=== PATIENT | female | born 2000 | race American Indian/Alaskan Native ===

== ENCOUNTER 2019-03-04 01:29 | Emergency (ER) | payer MEDICAID ==
[2019-03-04 01:37] VITALS: BP 107/69
[2019-03-04 03:01] LABS: Basophils % (Auto) 0.2 % (0.0-1.8); Eosinophils # (Auto) 0.1 K/mm3 (0.0-0.4); Eosinophils % (Auto) 0.9 % (0.0-4.3); Hematocrit 33.2 % (30.3-42.9); Hemoglobin 11.9 gm/dl (10.1-14.3); Lymphocytes # (Auto) 1.9 K/mm3 (1.2-5.4); Lymphocytes % (Auto) 22.6 % (13.4-35.0); Mean Corpuscular HGB Conc 36 % (30-34); Mean Corpuscular Volume 93 fl (79-97); Monocytes # (Auto) 0.7 K/mm3 (0.0-0.8); Monocytes % (Auto) 8.3 % (0.0-7.3); Platelet Count 313 K/mm3 (140-440); Red Blood Count 3.56 M/mm3 (3.65-5.03); Red Cell Distribution Width 13.2 % (13.2-15.2)
[2019-03-04] MEDS ORDERED: ONDANSETRON 4 MG ODT TAB PO ONE (03:05)
[2019-03-04] MEDS ORDERED: ONDANSETRON 4 MG ODT TAB ONE (03:05)
[2019-03-04] MEDS ORDERED: SODIUM CHLORIDE 0.9% 1000 ML 1,000 ML IV ONE (03:16)
[2019-03-04] MEDS ORDERED: ACETAMINOPHEN 500 MG TAB PO ONE (03:16)
[2019-03-04 03:18] LABS: Bacteria,Urine 1+ /HPF (Negative); Bilirubin,Urine NEG (Negative); Blood,Urine NEG (Negative); Color,Urine Yellow (Yellow); Mucus,Urine 3+ /HPF; Protein,Urine <15 mg/dL mg/dL (Negative)
--- NOTE | 2019-03-04 03:21 | Emergency Department Report ---
ED Female HPI - General Chief complaint: Abdominal Pain Stated complaint: 9WEEKS PREG, ABOMINAL PAIN Time Seen by Provider: 03/04/19 02:56 Source: patient, EMS Mode of arrival: Ambulatory Limitations: No Limitations - History of Present Illness Initial comments: 18-year-old female is currently about 9 weeks presents to the ER today complaining of low abdominal pain and abnormal vaginal bleeding. Patient states that yesterday she started with diffuse lower abdominal pain, which describes as sharp in nature and radiates into lower back. She reports spotting yesterday, but only noticed this once, she has not had any further bleeding or spotting since she has arrived to the ER. He states that yesterday while at work, she started feel generally weak, faint, started shaking all over and at the time feel short of breath, and so decided to go home. She states that she did vomit once around 11 PM yesterday, she states that the emesis contained stain small amount of bright red blood mixed with nachos. She states that the generalized weakness, shortness of breath and feeling faint has since resolved. She has continued to feel nauseous and she was gagging in the room, but no obvious vomiting. This is her first . 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 Denies any abnormal vaginal discharge or UTI symptoms, fever or chills or any other symptoms at this time. Complaint: vaginal bleeding, other (lower abdominal pain) -: Gradual (yesterday) - Related Data Previous Rx's Medication Instructions Recorded Last Taken Type Ondansetron [Zofran Odt] 4 mg PO Q8HR PRN #12 tab.rapdis 03/04/19 Unknown Rx Allergies Allergy/AdvReac Type Severity Reaction Status Date / Time amoxicillin Allergy Unknown Verified 03/04/19 01:34 ED Review of Systems ROS: Stated complaint: 9WEEKS PREG, ABOMINAL PAIN Other details as noted in HPI Comment: All other systems reviewed and negative Constitutional: denies: chills, fever Respiratory: denies: cough, orthopnea, shortness of breath (resolved), SOB with exertion, SOB at rest, wheezing Cardiovascular: denies: chest pain (earlier today but has since resolved) Gastrointestinal: abdominal pain, nausea, vomiting Genitourinary: other (vaginal spotting). denies: urgency, dysuria, frequency, hematuria, discharge, dyspareunia Musculoskeletal: back pain Neurological: denies: weakness (resolved), numbness, paresthesias, confusion, abnormal gait ED Past Medical Hx - Past Medical History Previous Medical History?: Yes Hx Asthma: Yes - Surgical History Past Surgical History?: No - Social History Smoking Status: Never Smoker Substance Use Type: None - Medications Home Medications: Home Medications Medication Instructions Recorded Confirmed Last Taken Type Ondansetron [Zofran Odt] 4 mg PO Q8HR PRN #12 tab.rapdis 03/04/19 Unknown Rx ED Physical Exam - General Limitations: No Limitations General appearance: alert, in no apparent distress - Head Head exam: Present: atraumatic, normocephalic, normal inspection - Eye Eye exam: Present: normal appearance, PERRL, EOMI Pupils: Present: normal accommodation - ENT ENT exam: Present: normal exam - Cardiovascular Cardiovascular Exam: Present: regular rate, normal rhythm, normal heart sounds - GI/Abdominal GI/Abdominal exam: Present: soft, tenderness (mild lower abdomen). Absent: distended, guarding, rebound - Neurological Exam Neurological exam: Present: alert, oriented X3, CN II-XII intact, normal gait - Psychiatric Psychiatric exam: Present: normal affect, normal mood - Skin Skin exam: Present: intact ED Course Vital Signs 03/04/19 03/04/19 01:33 03:24 Temperature 98.4 F Pulse Rate 81 Respiratory 18 18 Rate Blood Pressure 107/69 O2 Sat by Pulse 99 Oximetry ED Medical Decision Making - Lab Data Result diagrams: 03/04/19 02:35 03/04/19 02:35 - Radiology Data Radiology results: report reviewed Transvaginal OB ultrasound shows single viable intrauterine with a ultrasound gestational age of 8 weeks and 5 days. There is also a very small subchorionic hemorrhage adjacent to the inferior gestational sac. - Medical Decision Making Patient currently resting comfortably, and she is no acute distress. She is not toxic, ill appearing, normal mental status, neurologically intact. Vital signs are stable. No vomiting today. She has a Nonsurgical abdominal exam. Labs, and US reviewed. No further work up, admission or emergent consultation indicated at this time. Discussed results with patient and family member. patient has an up coming appointment with OBGYN soon and so recommend she keeps that appointment. Informed her that if anything worsens or changes return to ED. Critical care attestation.: If time is entered above; I have spent that time in minutes in the direct care of this critically ill patient, excluding procedure time. ED Disposition Clinical Impression: Threatened , Subchorionic hemorrhage Disposition: - TO HOME OR SELFCARE Is pt being admited?: No Does the pt Need Aspirin: No Condition: Stable Instructions: Threatened Miscarriage (ED) Additional Instructions: Recommend follow-up with [employer] in the next couple days as scheduled. Recommend Tylenol for pain. Take Zofran as needed for nausea and vomiting. Recommend that she try to stay hydrated as often as possible. Return to the ER if anything changes or worsens. Prescriptions: Ondansetron [Zofran Odt] 4 mg PO Q8HR PRN #12 tab.rapdis PRN Reason: Vomiting Referrals: PRIMARY CARE, [Primary Care Provider] - 3-5 Days Forms: Accompanied Note, Work/School Release Form(ED) Time of Disposition: 06:58
[2019-03-04 03:28] LABS: Alanine Aminotransferase 7 units/L (7-56); Albumin 3.9 g/dL (3.9-5); BUN/Creatinine Ratio 8; Blood Urea Nitrogen 3 mg/dL (7-17); Calcium 9.1 mg/dL (8.4-10.2); Hemolysis Index 4
--- NOTE | 2019-03-04 05:54 | Ultrasound Report ---
US OB transvaginal INDICATION / CLINICAL INFORMATION: 9 weeks vaginal bleeding. COMPARISON: None available. FINDINGS: Transvaginal imaging was performed. Intrauterine gestational sac is seen with yolk sac and pole. [place]-rump length is 21.3 mm (8 we eks, 5 days). heart rate is 176. There is a small subchorionic hemorrhage along the inferior as pect of the gestational sac. Ovaries are unremarkable. No free fluid. IMPRESSION: 1. Single viable intrauterine with sonographic gestational age of 8 weeks, 5 days. 2. Very small subchorionic hemorrhage adjacent to the inferior gestational sac. Signer Name: Javier Howell MD Signed: 03/04/2019 5:09 AM Workstation Name: [id number]
== END 2019-03-04 07:50 | disposition home or self-care (01) ==
LOC: ED 01:29
DX: O20.0 Threatened abortion (principal); O20.8 Other hemorrhage in early pregnancy; O21.8 Other vomiting complicating pregnancy; J45.909 Unspecified asthma, uncomplicated; Z79.899 Other long term (current) drug therapy; Z79.2 Long term (current) use of antibiotics; Z3A.09 9 weeks gestation of pregnancy
CPT/HCPCS: 36415; 76817; 80053; 81001; 83690; 84703; 85025; 86900; 86901; 96360; 99284; J7030; Q0162

== ENCOUNTER 2020-05-30 17:13 | Emergency (ER) | payer MEDICAID ==
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
[2020-05-30] MEDS ORDERED: ONDANSETRON 4 MG ODT TAB PO ONE ×2 (21:11→22:51)
[2020-05-30] MEDS ORDERED: IBUPROFEN 600 MG TAB PO ONE (21:11)
--- NOTE | 2020-05-30 21:51 | Cat Scan Report ---
CT HEAD WITHOUT CONTRAST INDICATION / CLINICAL INFORMATION: Trauma. TECHNIQUE: All CT scans at this location are performed using CT dose reduction for ALARA by means of automated e xposure control. COMPARISON: None available. FINDINGS: HEMORRHAGE: None. EXTRA-AXIAL SPACES: Normal in size and morphology for the patient's age. VENTRICULAR SYSTEM: Normal in size and morphology for the patient's age. CEREBRAL PARENCHYMA: No significant abnormality. No acute territorial infarct. MIDLINE SHIFT OR HERNIATION: None. CEREBELLUM / BRAINSTEM: No significant abnormality. ORBITS: Normal as visualized. SOFT TISSUES of HEAD: No significant abnormality. CALVARIUM: No significant abnormality. PARANASAL SINUSES / MASTOID AIR CELLS: Normal as visualized. ADDITIONAL FINDINGS: None. IMPRESSION: 1. No acute intracranial abnormality. Signer Name: Chan Avalos MD Signed: 05/30/2020 9:47 PM Workstation Name: [id number]
--- NOTE | 2020-05-30 21:58 | Cat Scan Report ---
CT CERVICAL SPINE WITHOUT CONTRAST INDICATION / CLINICAL INFORMATION: Trauma. TECHNIQUE: Axial CT images were obtained through the cervical spine. Sagittal and coronal reformatted images wer e produced. All CT scans at this location are performed using CT dose reduction for ALARA by means of automated exposure control. COMPARISON: None available. FINDINGS: VERTEBRAE: No significant abnormality. ALIGNMENT: No significant abnormality. DISC SPACES: No significant abnormality. FACET JOINTS: No significant abnormality. CRANIOCERVICAL JUNCTION:No significant abnormality. SPINAL CANAL: No significant abnormality. PARASPINAL SOFT TISSUES: No significant abnormality. ADDITIONAL FINDINGS: None. LUNG APICES: No significant abnormality of visualized lungs. IMPRESSION: 1. No significant abnormality. Signer Name: Chan Avalos MD Signed: 05/30/2020 9:53 PM Workstation Name: [id number]
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
--- NOTE | 2020-05-30 22:06 | XRay Report ---
THORACIC SPINE 2 VIEWS INDICATION / CLINICAL INFORMATION: Trauma. COMPARISON: None available. FINDINGS: VERTEBRAE: No acute fracture. No significant malalignment. DISC SPACES / FACET JOINTS:No significant abnormality. PARASPINAL SOFT TISSUES:No significant abnormality. ADDITIONAL FINDINGS: None. Signer Name: Chan Avalos MD Signed: 05/30/2020 10:02 PM Workstation Name: [id number]
--- NOTE | 2020-05-30 22:07 | XRay Report ---
PELVIS 1 VIEW(S) INDICATION / CLINICAL INFORMATION: Trauma COMPARISON: None available. FINDINGS: BONES / JOINT(S): No acute fracture or subluxation. No significant arthritis. SOFT TISSUES: No significant abnormality. ADDITIONAL FINDINGS: None. Signer Name: Chan Avalos MD Signed: 05/30/2020 10:02 PM Workstation Name: [id number]
[2020-05-31 00:11] VITALS: BP 102/60
== END 2020-05-31 00:11 | disposition home or self-care (01) ==
LOC: ED 17:13
DX: S09.90XA Unspecified injury of head, initial encounter (principal); M54.6 Pain in thoracic spine; M54.2 Cervicalgia; R07.81 Pleurodynia; J45.909 Unspecified asthma, uncomplicated; Z79.1 Long term (current) use of non-steroidal anti-inflammatories (NSAID); Z79.899 Other long term (current) drug therapy; Z88.1 Allergy status to other antibiotic agents; V49.49XA Driver injured in collision with other motor vehicles in traffic accident, initial encounter; W22.10XA Striking against or struck by unspecified automobile airbag, initial encounter; Y93.89 Activity, other specified; Y92.410 Unspecified street and highway as the place of occurrence of the external cause; Y99.8 Other external cause status
CPT/HCPCS: 70450; 71046; 72070; 72100; 72125; 72170; Q0162